=== PATIENT | female | born 1995 | race Caucasian/White ===

== ENCOUNTER 2020-11-29 02:20 | Observation (INO) | payer OTHER ==
[2020-11-29] MEDS ORDERED: ONDANSETRON 4 MG/2 ML VIAL IVP STA (02:40)
[2020-11-29] MEDS ORDERED: PANTOPRAZOLE 40 MG/10 ML VIAL IVP STA (02:40)
[2020-11-29] MEDS ORDERED: SODIUM CHLORIDE 0.9% 1,000 ML IV STA ×3 (02:40→03:44)
--- NOTE | 2020-11-29 03:03 | ED ---
Nausea/Vomiting/Diarrhea HPI - General Chief complaint: Nausea/Vomiting/Diarrhea Stated complaint: Vomiting Time Seen by Provider: 11/29/20 02:25 Source: patient, RN notes reviewed, old records reviewed Mode of arrival: ambulatory Limitations: no limitations - History of Present Illness Initial comments: This is a 25-year-old female severely emaciated weak with intractable nausea vomiting. For a few days now. No significant known cause. Diffuse and generalized pain no recent travel history no sick contacts patient's family history of drug or alcohol abuse. Family is at bedside centimeters nursing like this. She always is thin no recent weight changes. No known sick contacts no travel history MD complaint: nausea, vomiting, abdominal pain -: days(s) Description of Vomiting: bilious Description of Diarrhea: water, mucous Associated Abdominal Pain: Yes Location: diffuse Radiation: none Severity: moderate, severe Severity scale (1-10): 9 Quality: cramping, aching Consistency: constant Improves with: none Worsens with: none Context: other (none) Associated Symptoms: loss of appetite, nausea/vomiting, weakness - Related Data Allergies Allergy/AdvReac Type Severity Reaction Status Date / Time No Known Allergies Allergy Verified 11/29/20 02:25 Review of Systems ROS Statement: Those systems with pertinent positive or pertinent negative responses have been documented in the HPI. ROS Other: All systems not noted in ROS Statement are negative. Past Medical History Past Medical History: No Reported History History of Any Multi-Drug Resistant Organisms: None Reported Past Surgical History: No Surgical Hx Reported Past Psychological History: Anxiety Smoking Status: Current every day smoker Past Alcohol Use History: None Reported General Exam Limitations: no limitations General appearance: alert, in no apparent distress, anxious, lethargic Head exam: Present: atraumatic, normocephalic, normal inspection Eye exam: Present: normal appearance, PERRL, EOMI. Absent: scleral icterus, conjunctival injection, periorbital swelling ENT exam: Present: normal exam, mucous membranes dry Neck exam: Present: normal inspection. Absent: tenderness, meningismus, lymphadenopathy Respiratory exam: Present: normal lung sounds bilaterally. Absent: respiratory distress, wheezes, rales, rhonchi, stridor Cardiovascular Exam: Present: regular rate, normal rhythm, normal heart sounds. Absent: systolic murmur, diastolic murmur, rubs, gallop, clicks GI/Abdominal exam: Present: soft, normal bowel sounds. Absent: distended, tenderness, guarding, rebound, rigid Extremities exam: Present: normal inspection, full ROM, normal capillary refill. Absent: tenderness, pedal edema, joint swelling, calf tenderness Back exam: Present: normal inspection Neurological exam: Present: alert, oriented X3, CN II-XII intact Psychiatric exam: Present: normal affect, normal mood Skin exam: Present: warm, dry, intact, normal color. Absent: rash Course Vital Signs 11/29/20 02:20 Temperature 97.8 F Pulse Rate 70 Respiratory 20 Rate Blood Pressure 106/60 O2 Sat by Pulse 97 Oximetry - Reevaluation(s) Reevaluation #1: 11/29/20 03:47 Medical record is reviewed Reevaluation #2: 11/29/20 03:48 Patient has no improvement in symptoms here in the ER Reevaluation #3: 11/29/20 03:48 Patient informed results questions have been answered Medical Decision Making - Medical Decision Making 25 female will be admitted for intractable nausea vomiting acidosis. Patient feeling improved although still nauseous and vomiting - Lab Data Result diagrams: 11/29/20 02:50 11/29/20 02:50 Lab Results 11/29/20 11/29/20 Range/Units 02:50 02:50 WBC 17.8 H (3.8-10.6) k/uL RBC 4.81 (3.80-5.40) m/uL Hgb 14.4 (11.4-16.0) gm/dL Hct 42.7 (34.0-46.0) % MCV 88.8 (80.0-100.0) fL MCH 29.9 (25.0-35.0) pg MCHC 33.7 (31.0-37.0) g/dL RDW 14.2 (11.5-15.5) % Plt Count 432 (150-450) k/uL MPV 7.6 Neutrophils % 91 % Lymphocytes % 5 % Monocytes % 2 % Eosinophils % 1 % Basophils % 0 % Neutrophils # 16.2 H (1.3-7.7) k/uL Lymphocytes # 0.9 L (1.0-4.8) k/uL Monocytes # 0.4 (0-1.0) k/uL Eosinophils # 0.2 (0-0.7) k/uL Basophils # 0.1 (0-0.2) k/uL Sodium 141 (137-145) mmol/L Potassium 3.8 (3.5-5.1) mmol/L Chloride 108 H (98-107) mmol/L Carbon Dioxide 17 L (22-30) mmol/L Anion Gap 16 mmol/L BUN 17 (7-17) mg/dL Creatinine 0.74 (0.52-1.04) mg/dL Est GFR (CKD-EPI)AfAm >90 (>60 ml/min/1.73 sqM) Est GFR (CKD-EPI)NonAf >90 (>60 ml/min/1.73 sqM) Glucose 136 H (74-99) mg/dL Calcium 10.8 H (8.4-10.2) mg/dL Total Bilirubin 0.5 (0.2-1.3) mg/dL AST 30 (14-36) U/L ALT 22 (4-34) U/L Alkaline Phosphatase 88 (38-126) U/L Lactate Dehydrogenase 416 (313-618) U/L Creatine Kinase 112 (30-135) U/L C-Reactive Protein <0.5 (<1.0) mg/dL Total Protein 7.8 (6.3-8.2) g/dL Albumin 5.2 H (3.5-5.0) g/dL Amylase 56 (30-110) U/L Lipase 33 (23-300) U/L - Radiology Data Radiology results: report reviewed (CT chest abd and pelvis pending), image reviewed Disposition Clinical Impression: Dehydration, Gastroenteritis Disposition: ADMITTED IP TO THIS HOSP Condition: Fair Is patient prescribed a controlled substance at d/c from ED?: No Referrals: None,Stated [Primary Care Provider] - 1-2 days
[2020-11-29] MEDS ORDERED: PROCHLORPERAZINE INJ 10 MG/2 ML VIAL IVP STA (03:18)
[2020-11-29] MEDS ORDERED: DIAZEPAM 5 MG/ML 2 ML INJ IVP STA (03:18)
[2020-11-29 03:24] LABS: ALT 22 U/L (4-34); AST 30 U/L (14-36); African American GFR (CKD) >90 (>60 ml/min/1.73 sqM); Albumin 5.2 g/dL (3.5-5.0); Alkaline Phosphatase 88 U/L (38-126); Amylase 56 U/L (30-110); Anion Gap 16 mmol/L; Blood Urea Nitrogen 17 mg/dL (7-17); C Reactive Protein <0.5 mg/dL (<1.0); Calcium 10.8 mg/dL (8.4-10.2); Carbon Dioxide 17 mmol/L (22-30); Chloride 108 mmol/L (98-107); Creatine Kinase 112 U/L (30-135); Glucose 136 mg/dL (74-99); LDH 416 U/L (313-618); Lipase 33 U/L (23-300); Non-African American GFR(CKD) >90 (>60 ml/min/1.73 sqM); Potassium 3.8 mmol/L (3.5-5.1); Sodium 141 mmol/L (137-145); Total Bilirubin 0.5 mg/dL (0.2-1.3); Total Protein 7.8 g/dL (6.3-8.2)
[2020-11-29 03:26] LABS: Basophils # (A) 0.1 k/uL (0-0.2); Basophils % (A) 0 %; Eosinophils # (A) 0.2 k/uL (0-0.7); Eosinophils % (A) 1 %; HCT 42.7 % (34.0-46.0); HGB 14.4 gm/dL (11.4-16.0); Lymphocytes # (A) 0.9 k/uL (1.0-4.8); Lymphocytes % (A) 5 %; MCH 29.9 pg (25.0-35.0); MCHC 33.7 g/dL (31.0-37.0); MCV 88.8 fL (80.0-100.0); Mean Platelet Volume 7.6; Monocytes # (A) 0.4 k/uL (0-1.0); Monocytes % (A) 2 %; Neutrophils # (A) 16.2 k/uL (1.3-7.7); Neutrophils % (A) 91 %; Platelet Count 432 k/uL (150-450); RBC 4.81 m/uL (3.80-5.40); RDW 14.2 % (11.5-15.5); WBC 17.8 k/uL (3.8-10.6)
[2020-11-29] MEDS ORDERED: DEXTROSE 5%-0.45% NACL 1,000 ML IV ONE (03:44)
[2020-11-29] MEDS ORDERED: NALOXONE 0.4 MG/ML 1 ML VIAL IV PRN (03:45)
[2020-11-29] MEDS ORDERED: ONDANSETRON 4 MG/2 ML VIAL IVP PRN (03:45)
[2020-11-29] MEDS ORDERED: MORPHINE SULFATE 4 MG/ML SYRINGE IV PRN (03:45)
[2020-11-29 04:10] LABS: Appearance,Urine Clear (Clear); Bilirubin,Urine Negative (Negative); Blood,Urine Negative (Negative); Color,Urine Yellow; Glucose,Urine (UA) Negative (Negative); Hyaline Casts,Urine 3 /lpf (0-2); Ketones,Urine 4+ (Negative); Leukocyte Esterase,Urine Negative (Negative); Mucus,Urine Few /hpf; Nitrite,Urine Negative (Negative); PH, Urine 8.5 (5.0-8.0); Protein,Urine 2+ (Negative); RBC,Urine 1 /hpf (0-5); Specific Gravity,Urine 1.022 (1.001-1.035); Squamous Epithelial Cell,Urine 2 /hpf (0-4); Urobilinogen,Urine <2.0 mg/dL (<2.0); WBC,Urine 2 /hpf (0-5)
--- NOTE | 2020-11-29 05:12 | CT ---
EXAM: CT Angiography Chest With Intravenous Contrast CLINICAL HISTORY: ITS.REASON CT Reason: pain TECHNIQUE: Axial computed tomographic angiography images of the chest with intravenous contrast. CTDI is 8.47 mGy and DLP is 172.50 mGy-cm. This CT exam was performed using one or more of the following dose reduction techniques: automated exposure control, adjustment of the mA and/or kV according to patient size, and/or use of iterative reconstruction technique. MIP reconstructed images were created and reviewed. COMPARISON: No relevant prior studies available. FINDINGS: Pulmonary arteries: No filling defects. Aorta: No thoracic aortic aneurysm. Lungs: No mass. No consolidation. Pleural space: No pneumothorax. No effusion. Heart: No cardiomegaly. No pericardial effusion. Bones/joints: No acute fracture or dislocation. Soft tissues: Unremarkable. Lymph nodes: No enlarged lymph nodes. IMPRESSION: No acute intrathoracic findings.
--- NOTE | 2020-11-29 05:16 | CT ---
EXAM: CT Abdomen and Pelvis With Intravenous Contrast CLINICAL HISTORY: ITS.REASON CT Reason: pain TECHNIQUE: Axial computed tomography images of the abdomen and pelvis with intravenous contrast. CTDI is 10.2 mGy and DLP is 474 mGy-cm. This CT exam was performed using one or more of the following dose reduction techniques: automated exposure control, adjustment of the mA and/or kV according to patient size, and/or use of iterative reconstruction technique. COMPARISON: No relevant prior studies available. FINDINGS: Lung bases: No mass. No consolidation. ABDOMEN: Liver: Periportal edema, likely from IV fluids. Gallbladder and bile ducts: Unremarkable. Pancreas: Unremarkable. Spleen: Unremarkable. Adrenals: Unremarkable. Kidneys and ureters: No hydronephrosis. Stomach and bowel: No bowel obstruction. No bowel wall thickening. PELVIS: Appendix: Not visualized. Bladder: Unremarkable. Reproductive: Unremarkable. ABDOMEN and PELVIS: Intraperitoneal space: Unremarkable. Bones/joints: No acute fractures. Soft tissues: Unremarkable. Vasculature: No abdominal aortic aneurysm. Prominent periuterine vessels and ovarian veins bilaterally. Lymph nodes: No enlarged lymph nodes. IMPRESSION: 1. Periportal edema, likely from IV fluids. 2. Appendix not visualized. 3. Prominent periuterine vessels and ovarian veins bilaterally. Nonspecific, can be seen with pelvic congestion syndrome. 4. Mildly thickened cecum, likely due to underdistention.
[2020-11-29 07:39] VITALS: RESP 16
[2020-11-29] MEDS ORDERED: PANTOPRAZOLE 40 MG/10 ML VIAL IV SCH (09:00)
[2020-11-29] MEDS: TRIMETHOBENZAMIDE 100 MG/ML 2 ML VIAL IM PRN ×2 (09:04→16:54)
--- NOTE | 2020-11-29 13:11 | P.HPIM ---
History of Present Illness Patient is a pleasant 25-year-old female came built in with comments of nausea vomiting. Patient was complaining of retrosternal pressure-like sensation which resolved at this time patient was given Protonix with significant improvement in her symptoms patient was started on diet she can tolerate the right patient will be discharged today patient is feeling much better today. Patient denied any drug abuse or alcohol abuse. Patient is always thin built and doesn't eat much. Patient usually forgets to eat and then she started having symptoms of nausea. Patient had a CT angios the chest as well as CTA of the abdomen which did not show any significant abnormality patient received IV fluids overnight patient was evaluated by nutrition services and patient will follow-up with them. I'm obtaining one EKG and the one set of troponin. Review of Systems REVIEW OF SYSTEMS: CONSTITUTIONAL: No fever, no malaise, no fatigue. HEENT: No recent visual problems or hearing problems. Denied any sore throat. CARDIOVASCULAR: No orthopnea, PND, no palpitations, no syncope. PULMONARY: No shortness of breath, no cough, no hemoptysis. GASTROINTESTINAL: As mentioned in HPI NEUROLOGICAL: No headaches, no weakness, no numbness. HEMATOLOGICAL: Denies any bleeding or petechiae. GENITOURINARY: Denies any burning micturition, frequency, or urgency. MUSCULOSKELETAL/RHEUMATOLOGICAL: Denies any joint pain, swelling, or any muscle pain. ENDOCRINE: Denies any polyuria or polydipsia. The rest of the 14-point review of systems is negative. Past Medical History Past Medical History: No Reported History History of Any Multi-Drug Resistant Organisms: None Reported Past Surgical History: No Surgical Hx Reported Past Anesthesia/Blood Transfusion Reactions: No Reported Reaction Past Psychological History: Anxiety Smoking Status: Current every day smoker Past Alcohol Use History: None Reported Medications and Allergies Home Medications Medication Instructions Recorded Confirmed Type Omeprazole [PriLOSEC] 40 mg PO LATRICE-BRKFST #14 capsule. 11/29/20 Rx Allergies Allergy/AdvReac Type Severity Reaction Status Date / Time cephalexin [From Keflex] Allergy Unknown Verified 11/29/20 12:43 Childhood Physical Exam Vitals: Vital Signs Temp Pulse Pulse Resp BP BP Pulse Ox 11/29/20 08:00 56 L 16 11/29/20 07:38 97.9 F 56 L 16 128/78 99 11/29/20 05:40 97.6 F 42 L 144/65 100 11/29/20 05:23 97.9 F 72 18 114/70 99 11/29/20 02:20 97.8 F 70 20 106/60 97 Intake and Output 11/28/20 11/29/20 11/29/20 22:59 06:59 14:59 Other: Weight 43.545 kg PHYSICAL EXAMINATION: GENERAL: The patient is alert and oriented x3, not in any acute distress. Thin built female HEENT: Pupils are round and equally reacting to light. EOMI. No scleral icterus. No conjunctival pallor. Normocephalic, atraumatic. No pharyngeal erythema. No thyromegaly. CARDIOVASCULAR: S1 and S2 present. No murmurs, rubs, or gallops. PULMONARY: Chest is clear to auscultation, no wheezing or crackles. ABDOMEN: Soft, nontender, nondistended, normoactive bowel sounds. No palpable organomegaly. MUSCULOSKELETAL: No joint swelling or deformity. EXTREMITIES: No cyanosis, clubbing, or pedal edema. NEUROLOGICAL: Gross neurological examination did not reveal any focal deficits. SKIN: No rashes. Results CBC & Chem 7: 11/29/20 02:50 11/29/20 02:50 Labs: Abnormal Lab Results - Last 24 Hours (Table) 11/29/20 11/29/20 11/29/20 Range/Units 02:50 02:50 02:50 WBC 17.8 H (3.8-10.6) k/uL Neutrophils # 16.2 H (1.3-7.7) k/uL Lymphocytes # 0.9 L (1.0-4.8) k/uL Chloride 108 H (98-107) mmol/L Carbon Dioxide 17 L (22-30) mmol/L Glucose 136 H (74-99) mg/dL Calcium 10.8 H (8.4-10.2) mg/dL Albumin 5.2 H (3.5-5.0) g/dL Urine pH 8.5 H (5.0-8.0) Urine Protein 2+ H (Negative) Urine Ketones 4+ H (Negative) Hyaline Casts 3 H (0-2) /lpf Urine Mucus Few H (None) /hpf Thrombosis Risk Factor Assmnt - Choose All That Apply Any of the Below Risk Factors Present?: No Other Risk Factors: No Other congenital or acquired thrombophilia - If yes, enter type in comment: No Thrombosis Risk Factor Assessment Level: Very Low Risk Assessment and Plan Plan: -Esophagitis, gastritis or gastroenteritis, symptoms improved patient will be discharged on Prilosec for 14 more days -Underweight: Patient will follow with the nutrition services as an outpatient -Nicotine use: Counseling was provided patient never used any IV drugs but used to use some other drugs in the past which she quit -Ruled out pulmonary embolism Patient will be discharged today
[2020-11-29 13:33] VITALS: BMI 18.7
[2020-11-29 15:26] VITALS: BP 104/65; PULSE 77; TEMP 98.1
--- NOTE | 2020-11-29 16:11 | P.DS ---
Providers Date of admission: 11/29/20 03:46 Attending physician: Ramon Gagnon Primary care physician: Stated None Hospital Course: patient was having anxiety episodes because of which patient was started on citalopram and patient. Diet by the end of the day patient will be discharged today. Please refer to HPI for further details. Patient Condition at Discharge: Fair Plan - Discharge Summary Discharge Rx Participant: Yes New Discharge Prescriptions: New Omeprazole [PriLOSEC] 40 mg PO AC-BRKFST #14 capsule. Citalopram Hydrobromide [Citalopram HBr] 10 mg PO DAILY #30 tablet Discharge Medication List Citalopram Hydrobromide [Citalopram HBr] 10 mg PO DAILY #30 tablet 11/29/20 [Rx] Omeprazole [PriLOSEC] 40 mg PO AC-BRKFST #14 capsule. 11/29/20 [Rx] Follow up Appointment(s)/Referral(s): Mireya Christine MD [REFERRING] - 1 Week (office closed at time of discharge Please call to make appointment ) Patient Instructions/Handouts: Acute Nausea and Vomiting (DC) Discharge Disposition: HOME SELF-CARE
[2020-11-29] MEDS ORDERED: CITALOPRAM HYDROBROMIDE 10 MG TAB PO SCH (16:15)
== END 2020-11-29 17:51 | disposition home or self-care (01) ==
LOC: EC 02:20 → 4SSUR 03:46
PROVIDERS: ADMIT Hospitalist; ATTEND Hospitalist
DX: K52.9 Noninfective gastroenteritis and colitis, unspecified (principal); E86.0 Dehydration; E87.2 Acidosis; R63.6 Underweight; R64 Cachexia; Z68.1 Body mass index [BMI] 19.9 or less, adult; R63.0 Anorexia; R52 Pain, unspecified; F41.9 Anxiety disorder, unspecified; F17.200 Nicotine dependence, unspecified, uncomplicated; Z20.822 Contact with and (suspected) exposure to COVID-19; Z79.899 Other long term (current) drug therapy; Z88.1 Allergy status to other antibiotic agents
CPT/HCPCS: 96376; 96372; 96375 ×2; 96361; 96374; 99285; 36415; 93005; 80053; 82150; 82550; 83615; 83690; 84484; 85025; 86140; 81001; 81025; 87635; 71275; 74177; G0378; J2270; J0780; J3250; J3360; J2405; C9113; Q9967

== ENCOUNTER 2020-11-29 19:58 | Observation (INO) | payer OTHER ==
[2020-11-29] MEDS ORDERED: SODIUM CHLORIDE 0.9% 1,000 ML IV STA (21:04)
[2020-11-29] MEDS ORDERED: FAMOTIDINE 20 MG/2 ML VIAL IV STA (21:04)
[2020-11-29] MEDS ORDERED: ONDANSETRON 4 MG/2 ML VIAL IVP STA (21:04)
[2020-11-29] MEDS ORDERED: PANTOPRAZOLE 40 MG/10 ML VIAL IVP STA (21:11)
--- NOTE | 2020-11-29 21:13 | ED ---
Abdominal Pain HPI - General Chief Complaint: Abdominal Pain Stated Complaint: Vomiting blood, CRISTINA Time Seen by Provider: 11/29/20 20:48 Source: patient Mode of arrival: wheelchair Limitations: no limitations - History of Present Illness Initial Comments: 25-year-old male presents to the emergency department with a chief complaint of vomiting. Patient reports she was discharged earlier today after she was admitted for intractable nausea vomiting. Patient reports after discharge she began to feel symptomatically again. States she has been having multiple episodes of nonbilious vomiting. She does report some hematemesis as well. She has some epigastric abdominal pain after vomiting episodes but otherwise no other abdominal symptoms. She denies any fevers chills or back pain. Denies any urinary or vaginal symptoms. Patient does not abuse alcohol or drugs. She denies any hematuria, hematochezia or melena. Denies any possibility for preg sami. - Related Data Previous Rx's Medication Instructions Recorded Citalopram Hydrobromide 10 mg PO DAILY #30 tablet 11/29/20 [Citalopram HBr] Omeprazole [PriLOSEC] 40 mg PO AC-BRKFST #14 capsule. 11/29/20 Allergies Allergy/AdvReac Type Severity Reaction Status Date / Time cephalexin [From Keflex] Allergy Unknown Verified 11/29/20 20:06 Childhood Review of Systems ROS Statement: Those systems with pertinent positive or pertinent negative responses have been documented in the HPI. ROS Other: All systems not noted in ROS Statement are negative. Past Medical History Past Medical History: No Reported History History of Any Multi-Drug Resistant Organisms: None Reported Past Surgical History: No Surgical Hx Reported Past Anesthesia/Blood Transfusion Reactions: No Reported Reaction Past Psychological History: Anxiety Smoking Status: Current every day smoker Past Alcohol Use History: None Reported Past Drug Use History: Marijuana General Exam Limitations: no limitations General appearance: alert, in no apparent distress Head exam: Present: atraumatic, normocephalic, normal inspection Eye exam: Present: normal appearance, PERRL, EOMI Pupils: Present: normal accommodation ENT exam: Present: normal exam, normal oropharynx, mucous membranes moist, TM's normal bilaterally, normal external ear exam Neck exam: Present: normal inspection, full ROM. Absent: tenderness Respiratory exam: Present: normal lung sounds bilaterally. Absent: respiratory distress, wheezes, rales, rhonchi, stridor, chest wall tenderness, accessory muscle use Cardiovascular Exam: Present: regular rate, normal rhythm, normal heart sounds. Absent: systolic murmur GI/Abdominal exam: Present: soft, tenderness (Mild epigastric tenderness). Absent: distended, guarding, rebound Extremities exam: Present: normal inspection, full ROM, normal capillary refill. Absent: tenderness, pedal edema, joint swelling Back exam: Present: normal inspection, full ROM. Absent: tenderness, CVA tenderness (R), CVA tenderness (L), muscle spasm Neurological exam: Present: alert, oriented X3, normal gait Psychiatric exam: Present: normal affect, normal mood Skin exam: Present: warm, dry, intact, normal color Course Vital Signs 11/29/20 20:03 Temperature 98.1 F Pulse Rate 64 Respiratory 24 Rate Blood Pressure 132/66 O2 Sat by Pulse 99 Oximetry Medical Decision Making - Medical Decision Making 25-year-old female presents to emergency department with a chief complaint of nausea vomiting. On physical examination, patient did appear to be slightly in distress from all the vomiting. She didn't vomit while in the ED 2. There was a red tinge noted in the vomit. I did review her medical records which revealed that she had an abdomen and pelvis CT with no acute findings. She also had a CT chest angiogram with no findings of a PE. Laboratory work revealed leukocytosis of 22, likely reactive from the vomiting. Calcium of 10.4 which is improved from yesterday. UA shows plus for ketones. She did also have dry mucous members. Patient will be treated for dehydration. She was given IV fluids and Zofran initially. However, this did not improve any of her symptoms. Also give her 5 mg of IV Valium. This helped the patient calmed down and the vomiting temporarily. However, she still slightly nauseous. Patient will be admitted for intractable nausea and vomiting. Case discussed with Admitting is Dr Gagnon GI consult - Lab Data Result diagrams: 11/29/20 21:16 11/29/20 21:16 Lab Results 11/29/20 11/29/20 11/29/20 Range/Units 21:16 21:16 21:16 WBC 22.1 H (3.8-10.6) k/uL RBC 4.66 (3.80-5.40) m/uL Hgb 14.0 (11.4-16.0) gm/dL Hct 42.0 (34.0-46.0) % MCV 90.2 (80.0-100.0) fL MCH 30.0 (25.0-35.0) pg MCHC 33.2 (31.0-37.0) g/dL RDW 14.5 (11.5-15.5) % Plt Count 389 (150-450) k/uL MPV 7.2 Neutrophils % 89 % Lymphocytes % 4 % Monocytes % 4 % Eosinophils % 2 % Basophils % 0 % Neutrophils # 19.8 H (1.3-7.7) k/uL Lymphocytes # 1.0 (1.0-4.8) k/uL Monocytes # 0.9 (0-1.0) k/uL Eosinophils # 0.4 (0-0.7) k/uL Basophils # 0.0 (0-0.2) k/uL Sodium 141 (137-145) mmol/L Potassium 3.7 (3.5-5.1) mmol/L Chloride 105 (98-107) mmol/L Carbon Dioxide 22 (22-30) mmol/L Anion Gap 14 mmol/L BUN 16 (7-17) mg/dL Creatinine 0.70 (0.52-1.04) mg/dL Est GFR (CKD-EPI)AfAm >90 (>60 ml/min/1.73 sqM) Est GFR (CKD-EPI)NonAf >90 (>60 ml/min/1.73 sqM) Glucose 126 H (74-99) mg/dL Calcium 10.4 H (8.4-10.2) mg/dL Total Bilirubin 0.7 (0.2-1.3) mg/dL AST 58 H (14-36) U/L ALT 27 (4-34) U/L Alkaline Phosphatase 79 (38-126) U/L Total Protein 7.7 (6.3-8.2) g/dL Albumin 5.1 H (3.5-5.0) g/dL Amylase 56 (30-110) U/L Lipase 91 (23-300) U/L Urine Color Yellow Urine Appearance Clear (Clear) Urine pH 6.5 (5.0-8.0) Ur Specific [place] 1.037 H (1.001-1.035) Urine Protein 2+ H (Negative) Urine Glucose (UA) Negative (Negative) Urine Ketones 4+ H (Negative) Urine Blood Negative (Negative) Urine Nitrite Negative (Negative) Urine Bilirubin Negative (Negative) Urine Urobilinogen 2.0 (<2.0) mg/dL Ur Leukocyte Esterase Negative (Negative) Urine RBC 3 (0-5) /hpf Urine WBC 6 H (0-5) /hpf Ur Squamous Epith Cells 3 (0-4) /hpf Hyaline Casts 1 (0-2) /lpf Urine Mucus Many H (None) /hpf Disposition Clinical Impression: Intractable nausea and vomiting, Dehydration Disposition: ADMITTED IP TO THIS HOSP Condition: Fair Is patient prescribed a controlled substance at d/c from ED?: No Referrals: None,Stated [Primary Care Provider] - 1-2 days Time of Disposition: 22:58
[2020-11-29 21:27] LABS: Basophils % (A) 0 %; Eosinophils # (A) 0.4 k/uL (0-0.7); Eosinophils % (A) 2 %; Lymphocytes % (A) 4 %; MCHC 33.2 g/dL (31.0-37.0); MCV 90.2 fL (80.0-100.0); Mean Platelet Volume 7.2; Monocytes # (A) 0.9 k/uL (0-1.0); Monocytes % (A) 4 %; Neutrophils # (A) 19.8 k/uL (1.3-7.7); Neutrophils % (A) 89 %; Platelet Count 389 k/uL (150-450); RBC 4.66 m/uL (3.80-5.40); RDW 14.5 % (11.5-15.5); WBC 22.1 k/uL (3.8-10.6)
[2020-11-29 21:39] LABS: ALT 27 U/L (4-34); AST 58 U/L (14-36); African American GFR (CKD) >90 (>60 ml/min/1.73 sqM); Albumin 5.1 g/dL (3.5-5.0); Alkaline Phosphatase 79 U/L (38-126); Amylase 56 U/L (30-110); Anion Gap 14 mmol/L; Blood Urea Nitrogen 16 mg/dL (7-17); Calcium 10.4 mg/dL (8.4-10.2); Carbon Dioxide 22 mmol/L (22-30); Chloride 105 mmol/L (98-107); Glucose 126 mg/dL (74-99); Lipase 91 U/L (23-300); Non-African American GFR(CKD) >90 (>60 ml/min/1.73 sqM); Potassium 3.7 mmol/L (3.5-5.1); Sodium 141 mmol/L (137-145); Total Bilirubin 0.7 mg/dL (0.2-1.3); Total Protein 7.7 g/dL (6.3-8.2)
[2020-11-29] MEDS ORDERED: DIAZEPAM 5 MG/ML 2 ML INJ IVP STA (21:46)
[2020-11-29 21:56] LABS: Appearance,Urine Clear (Clear); Bilirubin,Urine Negative (Negative); Blood,Urine Negative (Negative); Color,Urine Yellow; Glucose,Urine (UA) Negative (Negative); Hyaline Casts,Urine 1 /lpf (0-2); Ketones,Urine 4+ (Negative); Leukocyte Esterase,Urine Negative (Negative); Mucus,Urine Many /hpf; Nitrite,Urine Negative (Negative); PH, Urine 6.5 (5.0-8.0); Protein,Urine 2+ (Negative); RBC,Urine 3 /hpf (0-5); Specific Gravity,Urine 1.037 (1.001-1.035); Squamous Epithelial Cell,Urine 3 /hpf (0-4); WBC,Urine 6 /hpf (0-5)
[2020-11-29] MEDS ORDERED: NALOXONE 0.4 MG/ML 1 ML VIAL IV PRN (22:53)
[2020-11-29] MEDS ORDERED: ACETAMINOPHEN TAB 325 MG TAB PO PRN (22:53)
[2020-11-29] MEDS ORDERED: MORPHINE SULFATE 2 MG/ML SYRINGE IVP ONE (23:36)
[2020-11-29] MEDS: ONDANSETRON 4 MG/2 ML VIAL IVP PRN (23:40)
[2020-11-30] MEDS: SODIUM CHLORIDE 0.9% 1,000 ML IV SCH ×2 (00:14→14:07)
[2020-11-30] MEDS: METOCLOPRAMIDE 5 MG/ML 2 ML VIAL IVP PRN ×3 (04:21→20:07)
[2020-11-30 07:57] LABS: Cocaine Screen,Urine Not Detected (NotDetected); Opiate Screen,Urine Detected (NotDetected); Phencyclidine Screen,Urine Not Detected (NotDetected); Urn Cannabinoid Scrn Detected (NotDetected)
[2020-11-30 07:58] LABS: Amphetamine Screen,Urine Detected (NotDetected); Barbiturate Screen,Urine Not Detected (NotDetected); Benzodiazepines Screen,Urine Detected (NotDetected); Methadone Screen, Urine Not Detected (NotDetected); Oxycodone Screen, Urine Not Detected (NotDetected); Tricyclic Antidepressant,Urine Not Detected (NotDetected)
[2020-11-30] MEDS: ONDANSETRON 4 MG/2 ML VIAL IVP PRN (07:58)
[2020-11-30] MEDS ORDERED: SCOPOLAMINE 1.5MG/72HR PATCH TRANSDERM SCH (09:00)
[2020-11-30] MEDS ORDERED: PANTOPRAZOLE 40 MG/10 ML VIAL IV SCH (09:00)
[2020-11-30] MEDS: LORazepam 2 MG/ML INJ IV PRN ×2 (10:19→14:07)
[2020-11-30] MEDS: ONDANSETRON 4 MG/2 ML VIAL IVP SCH ×2 (12:29→17:46)
[2020-11-30 16:39] VITALS: TEMP 99
--- NOTE | 2020-11-30 17:28 | XR ---
EXAMINATION TYPE: XR chest 1V portable DATE OF EXAM: 11/30/2020 COMPARISON: CT 11/29/2020 HISTORY: Chest pain. TECHNIQUE: Single frontal view of the chest is obtained. FINDINGS: There is no focal air space opacity, pleural effusion, or pneumothorax seen. The cardiac silhouette size is within normal limits. The osseous structures are intact. IMPRESSION: No acute process.
--- NOTE | 2020-11-30 17:41 | P.HPIM ---
History of Present Illness 25-year-old the female came in with nausea vomiting was discharged yesterday from my service after she was treated for esophagitis and gastritis. Patient is found to have multiple drugs in the urine drug screen. Patient denied using any drugs recently during her previous hospital physician of she does admit using some of them. Patient was having some epigastric abdominal discomfort. Patient to was bit bradycardic was anxious earlier today for which she received Ativan. Patient denied any hematuria, hematochezia or melena patient is thin built female. Patient does have leukocytosis with white blood cell count of 22,000. There is no evidence of pneumonia or UTI. Is under a day was noted from the nursing staff she was complaining of chest pain without any EKG and a troponin level. Review of Systems REVIEW OF SYSTEMS: CONSTITUTIONAL: No fever, no malaise, no fatigue. HEENT: No recent visual problems or hearing problems. Denied any sore throat. CARDIOVASCULAR: No chest pain, orthopnea, PND, no palpitations, no syncope. PULMONARY: No shortness of breath, no cough, no hemoptysis. GASTROINTESTINAL: As mentioned in HPI NEUROLOGICAL: No headaches, no weakness, no numbness. HEMATOLOGICAL: Denies any bleeding or petechiae. GENITOURINARY: Denies any burning micturition, frequency, or urgency. MUSCULOSKELETAL/RHEUMATOLOGICAL: Denies any joint pain, swelling, or any muscle pain. ENDOCRINE: Denies any polyuria or polydipsia. The rest of the 14-point review of systems is negative. Past Medical History Past Medical History: No Reported History Additional Past Medical History / Comment(s): Pt states she has been diagnosed with Crohns in the past, however has never had a scope. History of Any Multi-Drug Resistant Organisms: None Reported Past Surgical History: No Surgical Hx Reported Past Anesthesia/Blood Transfusion Reactions: No Reported Reaction Past Psychological History: Anxiety Smoking Status: Current every day smoker Past Alcohol Use History: None Reported Past Drug Use History: Marijuana Medications and Allergies Home Medications Medication Instructions Recorded Confirmed Type No Known Home Medications 11/30/20 11/30/20 History Allergies Allergy/AdvReac Type Severity Reaction Status Date / Time cephalexin [From Keflex] Allergy Unknown Verified 11/30/20 09:56 Childhood Physical Exam Vitals: Vital Signs Temp Pulse Pulse Resp BP BP Pulse Ox 11/30/20 16:38 99 F 41 L 18 130/67 05/23/21 16:20 99.7 F H 42 L 21 130/67 98 11/30/20 14:10 99.0 F 63 18 144/80 96 11/30/20 07:35 98.1 F 61 16 100/56 97 11/30/20 00:02 98.2 F 76 18 144/76 100 11/29/20 23:44 60 18 140/88 100 11/29/20 20:03 98.1 F 64 24 132/66 99 Intake and Output 11/30/20 11/30/20 11/30/20 06:59 14:59 22:59 Intake Total 375 1290 Output Total 75 Balance 375 -75 1290 Intake: Intake, IV Titration 375 750 Amount Sodium Chloride 0.9% 1, 375 750 000 ml @ 75 mls/hr IV . [id number] [facility] Rx#:[id number] Oral 540 Output: Emesis 75 Other: # Voids 2 Weight 41.5 kg PHYSICAL EXAMINATION: GENERAL: The patient is alert and oriented x3, not in any acute distress. Thin built female HEENT: Pupils are round and equally reacting to light. EOMI. No scleral icterus. No conjunctival pallor. Normocephalic, atraumatic. No pharyngeal erythema. No thyromegaly. CARDIOVASCULAR: S1 and S2 present. No murmurs, rubs, or gallops. PULMONARY: Chest is clear to auscultation, no wheezing or crackles. ABDOMEN: Soft, nontender, nondistended, normoactive bowel sounds. No palpable organomegaly. MUSCULOSKELETAL: No joint swelling or deformity. EXTREMITIES: No cyanosis, clubbing, or pedal edema. NEUROLOGICAL: Gross neurological examination did not reveal any focal deficits. SKIN: No rashes. Results CBC & Chem 7: 11/29/20 21:16 11/29/20 21:16 Labs: Abnormal Lab Results - Last 24 Hours (Table) 11/29/20 11/29/20 11/29/20 Range/Units 21:16 21:16 21:16 WBC 22.1 H (3.8-10.6) k/uL Neutrophils # 19.8 H (1.3-7.7) k/uL Glucose 126 H (74-99) mg/dL Calcium 10.4 H (8.4-10.2) mg/dL AST 58 H (14-36) U/L Albumin 5.1 H (3.5-5.0) g/dL Ur Specific [place] 1.037 H (1.001-1.035) Urine Protein 2+ H (Negative) Urine Ketones 4+ H (Negative) Urine WBC 6 H (0-5) /hpf Urine Mucus Many H (None) /hpf Urine Opiates Screen (NotDetected) Ur Amphetamines Screen (NotDetected) U Methamphetamines Scrn (NotDetected) U Benzodiazepines Scrn (NotDetected) U Marijuana (THC) Screen (NotDetected) 11/29/20 Range/Units 21:16 WBC (3.8-10.6) k/uL Neutrophils # (1.3-7.7) k/uL Glucose (74-99) mg/dL Calcium (8.4-10.2) mg/dL AST (14-36) U/L Albumin (3.5-5.0) g/dL Ur Specific [place] (1.001-1.035) Urine Protein (Negative) Urine Ketones (Negative) Urine WBC (0-5) /hpf Urine Mucus (None) /hpf Urine Opiates Screen Detected H (NotDetected) Ur Amphetamines Screen Detected H (NotDetected) U Methamphetamines Scrn Detected H (NotDetected) U Benzodiazepines Scrn Detected H (NotDetected) U Marijuana (THC) Screen Detected H (NotDetected) Thrombosis Risk Factor Assmnt - Choose All That Apply Any of the Below Risk Factors Present?: No Other Risk Factors: No Other congenital or acquired thrombophilia - If yes, enter type in comment: No Thrombosis Risk Factor Assessment Level: Very Low Risk Assessment and Plan Plan: -Intractable nausea vomiting: Secondary to multiple drugs. Counseling regarding drug abuse was provided. Patient will be monitored. Patient may need upper GI endoscopy because of which I consulted gastroenterology. Patient will be continued on IV fluids. Patient will continued on Protonix, Zofran -Complaints of chest pain we'll obtain a ECG and a troponin level patient is mildly bradycardic which is sinus bradycardia considering her body mass this is normal. -Leukocytosis reactive in nature -Nicotine abuse, marijuana use, cocaine abuse: Counseling was provided -DVT prophylaxis early ambulation
--- NOTE | 2020-11-30 18:40 | P.CONS ---
History of Present Illness - Reason for Consult Consult date: 11/30/20 nausea and vomiting Requesting physician: Anthony Mckeon - Chief Complaint nausea and vomiting - History of Present Illness 25-year-old female with a medical history significant for tobacco use who presented to the hospital for evaluation of nausea and vomiting. She did previously been hospitalized for similar complaints. She reports intractable nausea and vomiting occurring since Tuesday. Multiple episodes of nonbloody emesis. No prior episodes of similar complaints. She reports regular marijuana use every day. No history of inflammatory bowel disease. No prior EGD or colonoscopy. Computed tomography scan of the abdomen showed periportal edema with prominent periUrine vessels and mildly thickened cecum felt to be secondary to underdistention on prior admission. Laboratory evaluation significant for WBC 22, hemoglobin 14, platelet count 389,000 with total bilirubin 0.7, alkaline phosphatase 79, AST 58 and ALT 27. The patient had urine drug screen with findings of positive opiates, positive benzodiazepines, positive amphetamines, positive methamphetamines and positive marijuana. Review of Systems REVIEW OF SYSTEMS: CONSTITUTIONAL: Denies any fevers, chills, weight change or fatigue. CARDIOVASCULAR: Denies any chest pain, palpitations high or low blood pressures RESPIRATORY: Denies any shortness of breath, hemoptysis or cough. GENITOURINARY: No dysuria or hematuria. MUSCULOSKELETAL: No weakness reported. SKIN: Denies any new rashes or lesions, jaundice or pallor. PSYCHIATRIC: Denies any depression or anxiety, she reports daily marijuana use. NEUROLOGY: Denies headache, denies any new focal deficits. EARS/NOSE/THROAT: No recent hearing change, congestion, nasal discharge or sore throat. EYES: No pain in eyes, discharge or change in vision. GASTROINTESTINAL: As per HPI. Past Medical History Past Medical History: No Reported History History of Any Multi-Drug Resistant Organisms: None Reported Past Surgical History: No Surgical Hx Reported Past Anesthesia/Blood Transfusion Reactions: No Reported Reaction Past Psychological History: Anxiety Smoking Status: Current every day smoker Past Alcohol Use History: None Reported Past Drug Use History: Marijuana Additional History: family history: Reviewed with the patient and noncontributory to current medical presentation. Medications and Allergies Home Medications Medication Instructions Recorded Confirmed Type No Known Home Medications 11/30/20 11/30/20 History Allergies Allergy/AdvReac Type Severity Reaction Status Date / Time cephalexin [From Keflex] Allergy Unknown Verified 11/30/20 09:56 Childhood Physical Exam Vitals: Vital Signs Temp Pulse Pulse Resp BP BP Pulse Ox 11/30/20 07:35 98.1 F 61 16 100/56 97 11/30/20 00:02 98.2 F 76 18 144/76 100 11/29/20 23:44 60 18 140/88 100 11/29/20 20:03 98.1 F 64 24 132/66 99 Intake and Output 11/29/20 11/30/20 11/30/20 22:59 06:59 14:59 Intake Total 375 Balance 375 Intake: Intake, IV Titration 375 Amount Sodium Chloride 0.9% 1, 375 000 ml @ 75 mls/hr IV . [id number] [facility] Rx#:[id number] Other: Weight 43.545 kg 41.5 kg On physical examination, patient appears comfortable in no apparent distress. HEAD: Normocephalic, atraumatic. EYES: No scleral icterus. No conjunctival injection. MOUTH: No lesions, tongue midline. NECK: Trachea midline, no gross abnormalities. CHEST: Clear to auscultation with no wheezing or rhonchi appreciated. HEART: Regular rate and rhythm. ABDOMEN: Soft, thin and nontender. Bowel sounds are positive. No organomegaly. No guarding or rigidity. EXTREMITIES: No pedal edema. SKIN: No rashes, no jaundice. NEUROLOGIC: Alert and oriented x3. No focal deficits. Results CBC & Chem 7: 11/29/20 21:16 11/29/20 21:16 Labs: Abnormal Lab Results - Last 24 Hours (Table) 11/29/20 11/29/20 11/29/20 Range/Units 21:16 21:16 21:16 WBC 22.1 H (3.8-10.6) k/uL Neutrophils # 19.8 H (1.3-7.7) k/uL Glucose 126 H (74-99) mg/dL Calcium 10.4 H (8.4-10.2) mg/dL AST 58 H (14-36) U/L Albumin 5.1 H (3.5-5.0) g/dL Ur Specific [place] 1.037 H (1.001-1.035) Urine Protein 2+ H (Negative) Urine Ketones 4+ H (Negative) Urine WBC 6 H (0-5) /hpf Urine Mucus Many H (None) /hpf Urine Opiates Screen (NotDetected) Ur Amphetamines Screen (NotDetected) U Methamphetamines Scrn (NotDetected) U Benzodiazepines Scrn (NotDetected) U Marijuana (THC) Screen (NotDetected) 11/29/20 Range/Units 21:16 WBC (3.8-10.6) k/uL Neutrophils # (1.3-7.7) k/uL Glucose (74-99) mg/dL Calcium (8.4-10.2) mg/dL AST (14-36) U/L Albumin (3.5-5.0) g/dL Ur Specific [place] (1.001-1.035) Urine Protein (Negative) Urine Ketones (Negative) Urine WBC (0-5) /hpf Urine Mucus (None) /hpf Urine Opiates Screen Detected H (NotDetected) Ur Amphetamines Screen Detected H (NotDetected) U Methamphetamines Scrn Detected H (NotDetected) U Benzodiazepines Scrn Detected H (NotDetected) U Marijuana (THC) Screen Detected H (NotDetected) CT scan - abdomen: report reviewed (Computed tomography scan of the abdomen showed periportal edema with prominent periUrine vessels and mildly thickened cecum felt to be secondary to underdistention) Assessment and Plan (1) Intractable nausea and vomiting Narrative/Plan: 25-year-old female presenting with complaints of intractable nausea and vomiting. No prior episodes. She does use marijuana and drug screen was positive for multiple other illicit drugs. Unclear etiology, may be related to marijuana hyperemesis syndrome, uncontrolled reflux, functional bowel disorder or other etiology. Current Visit: Yes Status: Acute Code(s): R11.2 - NAUSEA WITH VOMITING, UNSPECIFIED SNOMED Code(s): 925248199 (2) Tobacco use Current Visit: Yes Status: Acute Code(s): Z72.0 - TOBACCO USE SNOMED Code(s): 601265473 Plan: supportive care Okay for clear liquid diet Protonix increased to twice daily Zofran changed to [id number] Reglan as needed for breakthrough nausea Scopolamine patch ordered Marijuana abstinence advised We will continue to monitor, if no improvement with symptomatic treatment may require endoscopic evaluation or follow-up after discharge if clinically patient Thank you for allowing us to participate in the care of the patient we will continue to follow
[2020-11-30] MEDS: PANTOPRAZOLE 40 MG/10 ML VIAL IV SCH (20:07)
[2020-11-30 22:31] VITALS: RESP 16
[2020-12-01] MEDS: ONDANSETRON 4 MG/2 ML VIAL IVP SCH ×3 (00:16→12:22)
[2020-12-01] MEDS: METOCLOPRAMIDE 5 MG/ML 2 ML VIAL IVP PRN ×3 (02:15→15:05)
[2020-12-01] MEDS: SODIUM CHLORIDE 0.9% 1,000 ML IV SCH ×2 (05:09→15:03)
[2020-12-01 06:15] VITALS: BP 118/70; PULSE 83
[2020-12-01] MEDS: PANTOPRAZOLE 40 MG/10 ML VIAL IV SCH (08:54)
--- NOTE | 2020-12-01 13:14 | P.PN ---
Subjective Progress Note Date: 12/01/20 25-year-old the female came in with nausea vomiting was discharged yesterday from my service after she was treated for esophagitis and gastritis. Patient is found to have multiple drugs in the urine drug screen. Patient denied using any drugs recently during her previous hospital physician of she does admit using some of them. Patient was having some epigastric abdominal discomfort. Patient to was bit bradycardic was anxious earlier today for which she received Ativan. Patient denied any hematuria, hematochezia or melena patient is thin built female. Patient does have leukocytosis with white blood cell count of 22,000. There is no evidence of pneumonia or UTI. Is under a day was noted from the nursing staff she was complaining of chest pain without any EKG and a troponin level. 12/01/2020 Patient is seen in follow-up continues to be vomiting with continued nausea. Patient is continued on telemetry and having continued sinus bradycardia. Patient continues with chest pain which is most likely secondary to continued vomiting. Troponins have been negative and EKG showing sinus bradycardia. Objective - Vital Signs Vital signs: Vital Signs Temp 99 F 12/01/20 06:15 Pulse 83 12/01/20 06:15 Resp 16 12/01/20 06:15 BP 118/70 12/01/20 06:15 Pulse Ox 96 12/01/20 06:15 Intake & Output 11/30/20 12/01/20 12/01/20 18:59 06:59 18:59 Intake Total 1310 925 Output Total 375 500 Balance 935 425 Intake: Intake, IV Titration 750 825 Amount Sodium Chloride 0.9% 1, 750 825 000 ml @ 75 mls/hr IV . [id number] [facility] Rx#:[id number] Oral 560 100 Output: Emesis 375 500 Other: Voiding Method Toilet # Voids 2 1 - Exam GENERAL: The patient is alert and oriented x3, not in any acute distress. Thin built female HEENT: Pupils are round and equally reacting to light. EOMI. No scleral icterus. No conjunctival pallor. Normocephalic, atraumatic. No pharyngeal erythema. No thyromegaly. CARDIOVASCULAR: S1 and S2 present. No murmurs, rubs, or gallops. PULMONARY: Chest is clear to auscultation, no wheezing or crackles. ABDOMEN: Soft, nontender, nondistended, normoactive bowel sounds. No palpable organomegaly. MUSCULOSKELETAL: No joint swelling or deformity. EXTREMITIES: No cyanosis, clubbing, or pedal edema. NEUROLOGICAL: Gross neurological examination did not reveal any focal deficits. SKIN: No rashes. - Labs CBC & Chem 7: 11/29/20 21:16 11/29/20 21:16 Assessment and Plan Assessment: -Intractable nausea vomiting: Secondary to multiple drugs. Counseling regarding drug abuse was provided. Patient will be monitored. Patient may need upper GI endoscopy if symptoms persist and GI is following. Continue with IV fluids and clear liquids and slowly advance as tolerated. Patient maintained on Protonix twice daily along with Zofran and Reglan as needed -Complaints of chest pain and acid reflux type feeling and has continued vomiting today. Patient continues to be sinus bradycardia and EKG shows this and troponins have been negative. -Leukocytosis reactive in nature -Nicotine abuse, marijuana use, cocaine abuse: Counseling was provided -DVT prophylaxis early ambulation Plan: Continue with clear liquids and will have GI reevaluate the patient as patient continues to have vomiting. Continue with IV hydration and will repeat basic metabolic panel and CBC. Patient continues to be sinus bradycardia on the monitor. Instructed the patient increase activity as tolerated and increase diet slowly also. Will discuss with GI about further treatment plans. Possible discharge in 24 hours.
[2020-12-01 14:17] LABS: Basophils # (A) 0.1 k/uL (0-0.2); Basophils % (A) 0 %; Eosinophils % (A) 0 %; HCT 39.4 % (34.0-46.0); HGB 13.4 gm/dL (11.4-16.0); Lymphocytes # (A) 2.7 k/uL (1.0-4.8); Lymphocytes % (A) 20 %; MCH 30.7 pg (25.0-35.0); MCV 90.3 fL (80.0-100.0); Mean Platelet Volume 7.4; Monocytes % (A) 8 %; Neutrophils # (A) 9.4 k/uL (1.3-7.7); Neutrophils % (A) 70 %; Platelet Count 348 k/uL (150-450); RBC 4.36 m/uL (3.80-5.40); RDW 14.1 % (11.5-15.5); WBC 13.4 k/uL (3.8-10.6)
[2020-12-01 14:23] VITALS: BMI 17.9
[2020-12-01 14:27] LABS: African American GFR (CKD) >90 (>60 ml/min/1.73 sqM); Anion Gap 9 mmol/L; Blood Urea Nitrogen 12 mg/dL (7-17); Calcium 9.4 mg/dL (8.4-10.2); Carbon Dioxide 26 mmol/L (22-30); Chloride 103 mmol/L (98-107); Glucose 87 mg/dL (74-99); Non-African American GFR(CKD) >90 (>60 ml/min/1.73 sqM); Potassium 3.5 mmol/L (3.5-5.1); Sodium 138 mmol/L (137-145)
[2020-12-01] MEDS ORDERED: TRIMETHOBENZAMIDE 100 MG/ML 2 ML VIAL IM PRN (14:43)
--- NOTE | 2020-12-01 16:08 | P.PN ---
Subjective Progress Note Date: 12/01/20 Principal diagnosis: Nausea and vomiting 25-year-old female who presented to the hospital with intractable nausea and vomiting since last . She states she still having nausea with vomiting, bile, nonbloody. Patient is a methamphetamine abuser and is going through withd rawals. She's had no previous endoscopic evaluation. Objective - Vital Signs Vital signs: Vital Signs Temp 99 F 12/01/20 06:15 Pulse 83 12/01/20 06:15 Resp 16 12/01/20 06:15 BP 118/70 12/01/20 06:15 Pulse Ox 96 12/01/20 06:15 Intake & Output 11/30/20 12/01/20 12/01/20 18:59 06:59 18:59 Intake Total 1310 925 Output Total 375 500 Balance 935 425 Intake: Intake, IV Titration 750 825 Amount Sodium Chloride 0.9% 1, 750 825 000 ml @ 75 mls/hr IV . [id number] [facility] Rx#:[id number] Oral 560 100 Output: Emesis 375 500 Other: Voiding Method Toilet # Voids 2 1 - Exam General appearance: The patient is alert, oriented, appears in no acute distress. HET: Head is normocephalic and atraumatic. Conjunctiva pink. Sclera anicteric. Neck: Supple without lymphadenopathy. Abdomen: Soft, epigastric tenderness, nondistended with bowel sounds. No guarding or rigidity. Extremities: Normal skin color and turgor. No pedal edema Skin: No rashes, no jaundice Neurological: No focal deficits. Alert and oriented 3. - Labs CBC & Chem 7: 12/01/20 13:37 12/01/20 13:37 Assessment and Plan (1) Intractable nausea and vomiting Narrative/Plan: 25-year-old female presenting with complaints of intractable nausea and vomiting since . No prior episodes. She does use marijuana and drug screen was positive for multiple other illicit drugs including methamphetamines. Unclear etiology may be related to marijuana hyperemesis syndrome, uncontrolled reflux, functional bowel disorder, or withdrawal from methamphetamines which is most likely etiology. Current Visit: Yes Status: Acute Code(s): R11.2 - NAUSEA WITH VOMITING, UNSPECIFIED SNOMED Code(s): 087267633 (2) Marijuana abuse Current Visit: Yes Status: Acute Code(s): F12.10 - CANNABIS ABUSE, UNCOMPLICATED SNOMED Code(s): 03053466 (3) Methamphetamine abuse Current Visit: Yes Status: Acute Code(s): F15.10 - OTHER STIMULANT ABUSE, UNCOMPLICATED SNOMED Code(s): 850291046 Plan: Supportive care Advance diet as tolerated Protonix twice daily Zofran change to [id number], continue Reglan as stated for breakthrough nausea Will add Tigan IM just needed Scopolamine patch Marijuana and drug abstinence advised No plans for endoscopic evaluation at this time, if symptoms persist may Need to consider upper endoscopy. Thank you for this consultation, we will continue to follow Dr. Ines Gunn I agree with the dictator's note, documented as a scribe by Vera Mcdowell.
--- NOTE | 2020-12-02 13:53 | P.DS ---
Providers Date of admission: 11/29/20 22:48 Expected date of discharge: 12/01/20 Attending physician: Ramon Gagnon Consults: 11/29/20 22:54 Consult Physician Routine Consulting Provider: Peter Sotelo Consult Reason/Comments: Intractable nausea vomiting Do you want consulting provider notified?: Yes Primary care physician: Stated None Hospital Course: Final diagnosis -Intractable nausea vomiting: Secondary to multiple drugs. Counseling regarding drug abuse was provided -Complaints of chest pain and acid reflux type feeling and has continued vomiting today. Patient continues to be sinus bradycardia and EKG shows this and troponins have been negative. -Leukocytosis reactive in nature -Nicotine abuse, marijuana use, cocaine abuse: Counseling was provided -DVT prophylaxis Discharge disposition Patient has left AGAINST MEDICAL ADVICE Hospital course 25-year-old the female came in with nausea vomiting was discharged yesterday from my service after she was treated for esophagitis and gastritis. Patient is found to have multiple drugs in the urine drug screen. Patient denied using any drugs recently during her previous hospital physician of she does admit using some of them. Patient was having some epigastric abdominal discomfort. Patient to was bit bradycardic was anxious earlier today for which she received Ativan. Patient denied any hematuria, hematochezia or melena patient is thin built female. Patient does have leukocytosis with white blood cell count of 22,000. There is no evidence of pneumonia or UTI. Is under a day was noted from the nursing staff she was complaining of chest pain without any EKG and a troponin level. 12/01/2020 Patient is seen in follow-up continues to be vomiting with continued nausea. Patient is continued on telemetry and having continued sinus bradycardia. Patient continues with chest pain which is most likely secondary to continued vomiting. Troponins have been negative and EKG showing sinus bradycardia. 12/01/2020 Patient has made comments to nursing staff that she is leaving. Currently no reports of chest pain, shortness of breath, or palpitations. Patient is afebrile. No reports of further nausea or vomiting and patient is tolerating diet. On exam vital signs are stable. Cardio S1, S2 are present sinus bradycardia. Respiratory system shows diminished breath sounds at the bases with no wheezing or rhonchi noted. Abdomen is soft and nontender. Nervous system shows no focal deficits. Please refer to medication reconciliation sheet for a list of medications. Patient Condition at Discharge: Good Plan - Discharge Summary New Discharge Prescriptions: No Action No Known Home Medications Discharge Medication List No Known Home Medications 11/30/20 [History] Follow up Appointment(s)/Referral(s): None,Stated [Primary Care Provider] - 1-2 days Discharge Disposition: Left Against Medical Advice
== END 2020-12-01 17:36 | disposition left against medical advice (07) ==
LOC: EC 19:58 → 6PED 22:48 → 5NMEDONC 11-30 16:14
PROVIDERS: ADMIT Hospitalist; ATTEND Hospitalist
DX: R11.2 Nausea with vomiting, unspecified (principal); E86.0 Dehydration; F15.10 Other stimulant abuse, uncomplicated; F14.10 Cocaine abuse, uncomplicated; F12.10 Cannabis abuse, uncomplicated; Z53.29 Procedure and treatment not carried out because of patient's decision for other reasons; Z20.822 Contact with and (suspected) exposure to COVID-19; K92.0 Hematemesis; R07.9 Chest pain, unspecified; R00.1 Bradycardia, unspecified; R00.0 Tachycardia, unspecified; D72.829 Elevated white blood cell count, unspecified; F41.9 Anxiety disorder, unspecified; F17.200 Nicotine dependence, unspecified, uncomplicated; R60.9 Edema, unspecified; Z88.1 Allergy status to other antibiotic agents
CPT/HCPCS: 96376 ×3; 96361 ×3; 96372; 96375 ×2; 96374; 99285; 36415; 93005; 80053; 80048; 82150; 83690; 84484; 85025 ×2; 81001; 80306; 87635; 71045; G0378 ×3; J2060; J2765 ×2; J3250; J3360; J2405 ×3; J2270; C9113 ×3